=== PATIENT | female | born 1945 | race Hispanic/Latino ===

== ENCOUNTER → 2017-09-30 | Outpatient (CLI) | payer OTHER, MEDICARE ==
[~2017-09-30] MED LIST: ASPI-1012 PO; CHOL500045 PO; HYDR-309 PO; LEVO100 PO; LOSA100T29 PO; LUBI24CA2 PO; PREG50 PO; SIMV40TA59 PO; SOLI5 PO
== END | disposition home or self-care (01) ==
LOC: RAH 07:49
PROVIDERS: ATTEND Family Medicine
DX: M47.896 Other spondylosis, lumbar region (principal)
CPT/HCPCS: 72148

== ENCOUNTER → 2018-02-18 | Outpatient (CLI) | payer OTHER, MEDICARE | END | disposition home or self-care (01) | LOC: OIH 15:46 | PROVIDERS: ATTEND Family Medicine | DX: M19.041 Primary osteoarthritis, right hand (principal) | CPT/HCPCS: 73130 ==

== ENCOUNTER → 2018-02-23 | Outpatient (CLI) | payer OTHER, MEDICARE | END | disposition home or self-care (01) | LOC: RAH 08:57 | PROVIDERS: ATTEND Family Medicine | DX: Z12.31 Encounter for screening mammogram for malignant neoplasm of breast (principal) | CPT/HCPCS: 77067 ==

== ENCOUNTER → 2018-03-12 | Outpatient (CLI) | payer OTHER, MEDICARE | END | disposition home or self-care (01) | LOC: RAH 13:03 | PROVIDERS: ATTEND Family Medicine | DX: R22.31 Localized swelling, mass and lump, right upper limb (principal) | CPT/HCPCS: 76882 ==

== ENCOUNTER → 2019-01-19 | Outpatient (CLI) | payer OTHER, MEDICARE ==
[~2019-01-19] MED LIST changes: -HYDR-309 PO; +HYDR-4457 PO; -LOSA100T29 PO; +LOSA100T58 PO
== END | disposition home or self-care (01) ==
LOC: OIH 10:00
PROVIDERS: ATTEND Family Medicine
DX: M19.041 Primary osteoarthritis, right hand (principal); M79.89 Other specified soft tissue disorders
CPT/HCPCS: 73130

== ENCOUNTER → 2019-02-24 | Outpatient (CLI) | payer OTHER, MEDICARE | END | disposition home or self-care (01) | LOC: RAH 09:19 | PROVIDERS: ATTEND Family Medicine | DX: Z12.31 Encounter for screening mammogram for malignant neoplasm of breast (principal) | CPT/HCPCS: 77067 ==

== ENCOUNTER → 2019-11-04 | Outpatient (CLI) | payer OTHER, MEDICARE | END | disposition home or self-care (01) | LOC: OIH 11:22 | PROVIDERS: ATTEND Family Medicine | DX: I10 Essential (primary) hypertension (principal); R07.89 Other chest pain | CPT/HCPCS: 71046 ==

== ENCOUNTER → 2019-11-12 | Outpatient (CLI) | payer OTHER, MEDICARE | END | disposition home or self-care (01) | LOC: OIH 12:49 | PROVIDERS: ATTEND Podiatrist | DX: M19.072 Primary osteoarthritis, left ankle and foot (principal); M19.071 Primary osteoarthritis, right ankle and foot; M20.11 Hallux valgus (acquired), right foot; M20.12 Hallux valgus (acquired), left foot; M77.52 Other enthesopathy of left foot and ankle; M77.51 Other enthesopathy of right foot and ankle | CPT/HCPCS: 73630 ==

== ENCOUNTER → 2019-12-28 | Outpatient (CLI) | payer OTHER, MEDICARE | END | disposition home or self-care (01) | LOC: SHCH 12:32 | PROVIDERS: ATTEND Internal Medicine Cardiovascular Disease | DX: I10 Essential (primary) hypertension (principal) | CPT/HCPCS: 93306; 93356 ==

== ENCOUNTER → 2020-01-04 | Outpatient (CLI) | payer OTHER, MEDICARE | END | disposition home or self-care (01) | LOC: SHCH 13:32 | PROVIDERS: ATTEND Internal Medicine Cardiovascular Disease | DX: I65.21 Occlusion and stenosis of right carotid artery (principal) | CPT/HCPCS: 93880 ==

== ENCOUNTER → 2020-01-07 | Outpatient (CLI) | payer OTHER, MEDICARE ==
[~2020-01-07] MED LIST changes: +REGADENOSON 0.4 MG/5 ML PF SYG IVP SCH
== END | disposition home or self-care (01) ==
LOC: SHCH 08:10
PROVIDERS: ATTEND Internal Medicine Cardiovascular Disease
DX: R07.9 Chest pain, unspecified (principal)
CPT/HCPCS: 78452; 93017; 96374; A9500 ×2; J2785

== ENCOUNTER → 2020-02-25 | Outpatient (CLI) | payer OTHER, MEDICARE ==
[~2020-02-25] MED LIST changes: -REGADENOSON 0.4 MG/5 ML PF SYG IVP SCH
== END | disposition home or self-care (01) ==
LOC: OIH 08:30
PROVIDERS: ATTEND Podiatrist
DX: M20.12 Hallux valgus (acquired), left foot (principal)
CPT/HCPCS: 73630

== ENCOUNTER → 2020-03-01 | Outpatient (CLI) | payer OTHER, MEDICARE | END | disposition home or self-care (01) | LOC: RAH 11:17 | PROVIDERS: ATTEND Family Medicine | DX: Z12.31 Encounter for screening mammogram for malignant neoplasm of breast (principal); N64.89 Other specified disorders of breast | CPT/HCPCS: 77067 ==

== ENCOUNTER → 2020-04-25 | Outpatient (CLI) | payer OTHER, MEDICARE | END | disposition home or self-care (01) | LOC: OIH 14:09 | PROVIDERS: ATTEND Podiatrist | DX: M19.072 Primary osteoarthritis, left ankle and foot (principal); M85.88 Other specified disorders of bone density and structure, other site; M20.12 Hallux valgus (acquired), left foot | CPT/HCPCS: 73630 ==

== ENCOUNTER → 2020-06-16 | Outpatient (CLI) | payer OTHER, MEDICARE ==
[~2020-06-16] MED LIST changes: +GADODIAMIDE 10 MMOL/20 ML VIAL IV ONE
== END | disposition home or self-care (01) ==
LOC: RAH 11:17
PROVIDERS: ATTEND Family Medicine
DX: M47.812 Spondylosis without myelopathy or radiculopathy, cervical region (principal); R93.1 Abnormal findings on diagnostic imaging of heart and coronary circulation; M48.00 Spinal stenosis, site unspecified
CPT/HCPCS: 72158; A9579

== ENCOUNTER → 2021-02-15 | Outpatient (CLI) | payer OTHER, MEDICARE ==
[~2021-02-15] MED LIST changes: -GADODIAMIDE 10 MMOL/20 ML VIAL IV ONE
== END | disposition home or self-care (01) ==
LOC: OIH 09:22
PROVIDERS: ATTEND Family Medicine
DX: S52.042A Displaced fracture of coronoid process of left ulna, initial encounter for closed fracture (principal); S42.402A Unspecified fracture of lower end of left humerus, initial encounter for closed fracture; S53.135A Medial dislocation of left ulnohumeral joint, initial encounter; M85.832 Other specified disorders of bone density and structure, left forearm; W07.XXXA Fall from chair, initial encounter; Y93.89 Activity, other specified; Y92.89 Other specified places as the place of occurrence of the external cause; Y99.8 Other external cause status
CPT/HCPCS: 73060; 73080; 73090

== ENCOUNTER → 2022-01-08 | Outpatient (CLI) | payer OTHER | LOC: RAH 10:12 | PROVIDERS: ATTEND Internal Medicine Cardiovascular Disease | DX: Z13.6 Encounter for screening for cardiovascular disorders (principal) | CPT/HCPCS: 75571 ==

== ENCOUNTER → 2023-06-02 | Outpatient (CLI) | payer OTHER, MEDICARE ==
[~2023-06-02] MED LIST changes: -LOSA100T58 PO; +LOSA100T59 PO
== END | disposition home or self-care (01) ==
LOC: RAH 10:25
PROVIDERS: ATTEND Family Medicine
DX: Z12.31 Encounter for screening mammogram for malignant neoplasm of breast (principal)
CPT/HCPCS: 77067

== ENCOUNTER → 2023-07-14 | Outpatient (CLI) | payer OTHER, MEDICARE | END | disposition home or self-care (01) | LOC: RAH 12:05 | PROVIDERS: ATTEND Family Medicine | DX: S61.432A Puncture wound without foreign body of left hand, initial encounter (principal); X58.XXXA Exposure to other specified factors, initial encounter; Y93.89 Activity, other specified; Y92.89 Other specified places as the place of occurrence of the external cause; Y99.8 Other external cause status | CPT/HCPCS: 73120 ==

== ENCOUNTER → 2023-12-26 | Outpatient (CLI) | payer OTHER, MEDICARE | END | disposition home or self-care (01) | LOC: RAH 09:07 | PROVIDERS: ATTEND Physical Medicine & Rehabilitation | DX: M47.22 Other spondylosis with radiculopathy, cervical region (principal); M48.02 Spinal stenosis, cervical region | CPT/HCPCS: 72050 ==

== ENCOUNTER → 2024-04-26 | Outpatient (CLI) | payer OTHER, MEDICARE | END | disposition home or self-care (01) | LOC: SHCH 09:50 | PROVIDERS: ATTEND Internal Medicine Cardiovascular Disease | DX: I08.3 Combined rheumatic disorders of mitral, aortic and tricuspid valves (principal); R01.1 Cardiac murmur, unspecified | CPT/HCPCS: 93306 ==

== ENCOUNTER → 2024-05-07 | Outpatient (CLI) | payer OTHER, MEDICARE ==
[2024-05-07] MEDS: REGADENOSON 0.4 MG/5 ML PF SYG IVP ONE (13:56)
== END | disposition home or self-care (01) ==
LOC: SHCH 08:18
PROVIDERS: ATTEND Internal Medicine Cardiovascular Disease
DX: I99.8 Other disorder of circulatory system (principal); R94.31 Abnormal electrocardiogram [ECG] [EKG]; I20.9 Angina pectoris, unspecified; I25.42 Coronary artery dissection; I25.9 Chronic ischemic heart disease, unspecified
CPT/HCPCS: 78452; 93017; J2785; A9500 ×2